=== PATIENT | female | born 1985 | race Caucasian/White ===

== ENCOUNTER → 2020-06-17 15:01 | Outpatient (CLI) | payer MEDICAID, SELFPAY ==
[2020-06-17 16:46] LABS: Absolute Lymphocyte Count 2.18 X10^3/uL (0.83-4.51); Absolute Neutrophil Count 6.6 X10^3/uL (2.0-7.7); Basophil# 0.03 X10^3/uL; Basophil% 0.3 % (0-1); Eosinophil# 0.15 X10^3/uL; Eosinophils% 1.6 % (0-5); Hemoglobin 13.3 g/dL (12.0-15.0); Lymphocyte # 2.18 X10^3/ul (4.0); Lymphocyte % 22.8 % (19-41); Mean Corp Hgb Conc 32.4 g/dL (32-36); Mean Corpuscular Hgb 27.4 pg (27.0-32.0); Mean Corpuscular Volume 84.5 fL (81-99); Mean Platelet Vol. 9.9 fl (6.2-12.0); Monocyte# 0.56 X10^3/uL; Monocyte% 5.8 % (0-10); NRBC Flagged by Analyzer 0 % (0-5); Neutrophil # 6.62 X10^3/uL (2.7-7.7); Neutrophil % 69.1 % (47-70); Platelet Count 342 K/mm3 (150-450); RBC Distribution Width CV 14.6 % (11.6-14.6); RBC Distribution Width SD 44.9 fl (35.1-43.9); Red Blood Count 4.85 M/mm3 (4.2-5.4); White Blood Count 9.6 K/mm3 (4.4-11.0)
[2020-06-17 17:01] LABS: ALB/GLOB Ratio 0.8 RATIO (0.9-2.4); AST(SGOT) 9 U/L (15-37); Alanine Aminotransfer ALT/SGPT 23 U/L (13-56); Albumin, Serum 3.4 g/dL (3.2-5.0); Alkaline Phosphatase 79 U/L (45-117); Anion Gap 9 (5-15); BUN 8 mg/dL (7-18); BUN/Creat Ratio 13.1 RATIO (10-20); Calcium,Total 9.6 mg/dL (8.5-10.1); Chloride 101 mmol/L (98-107); Creatinine, Serum 0.61 mg/dL (0.55-1.02); EST Glomerular Filtration Rate 117 mL/min (>60); Est Glom Filt Rate - Afr Amer 142 mL/min (>60); Globulin 4.3 g/dL (2.2-4.2); Glucose 88 mg/dL (74-106); LDH 107 U/L (84-246); Potassium 3.9 mmol/L (3.5-5.1); Protein, Total 7.7 g/dL (6.4-8.2); Protein, Urine (Random) 12.3 mg/dL (<11.9); Protein:Creat Ratio 113 mg/g CRE (0-200); Sodium Level 134 mmol/L (136-145)
[2020-06-17 17:10] LABS: Amphetamine Urine VISTA NEGATIVE (<1000 ng/mL); Barbiturate Urine VISTA NEGATIVE (< 200 ng/mL); Benzodiazepine Urine VISTA NEGATIVE (< 200 ng/mL); Cocaine Urine VISTA NEGATIVE (< 300 ng/mL); Ecstacy Urine VISTA NEGATIVE (< 500 ng/mL); Methadone Urine VISTA NEGATIVE (< 300 ng/mL); PCP Urine VISTA NEGATIVE (< 25 ng/mL); THC Urine VISTA NEGATIVE (< 50 ng/mL); Vista UDS pH Range 6
[2020-06-18 09:51] LABS: HIV - WCH Non-Reactive (Nonreactive); Hepatitis B Surface Antigen Non-Reactive (Nonreactive); Hepatitis C Antibody Non-Reactive (Nonreactive); Rubella IgG Reactive (Nonreactive)
[2020-06-20 01:10] LABS: Prenatal RPR NONREACTIVE (NONREACTIVE)
[2020-06-20 12:07] LABS: Chlamydia By Nucleic Acid AMP Negative (Negative)
[2020-06-20 13:02] LABS: Gonococcus By Nucleic Acid AMP Negative (Negative)
[2020-06-21 11:23] LABS: HPV APTIMA, High Risk Negative (Negative); HPV Reflexed? NOT INDICATED
== END ==
PROVIDERS: Visit Provider Student in an Organized Health Care Education/Training Program
DX: Z12.4 Encounter for screening for malignant neoplasm of cervix (principal); Z11.3 Encounter for screening for infections with a predominantly sexual mode of transmission; Z32.01 Encounter for pregnancy test, result positive; Z34.81 Encounter for supervision of other normal pregnancy, first trimester
CPT/HCPCS: 36415; 80053; 80307; 82570; 83615; 84156; 85025; 86703; 86762; 86803; 87086; 87088; 87340; 87491; 87591; 88175; G0145

== ENCOUNTER 2020-07-31 17:23 | Emergency (ER) | payer MEDICAID, SELFPAY ==
[2020-07-31 17:24] VITALS: BP 149/83; BP 176/99; PULSE 105; PULSE 125; RESP 18; TEMP 36.6; O2SAT 96; BMI 58.1
[2020-07-31 17:34] VITALS: O2SAT 98
--- NOTE | 2020-07-31 17:35 | EKG12_ITS ---
Test Reason : SOB Blood Pressure : / mmHG Vent. Rate : 106 BPM Atrial Rate : 106 BPM P-R Int : 142 ms QRS Dur : 078 ms QT Int : 310 ms P-R-T Axes : 039 029 021 degrees QTc Int : 411 ms Sinus tachycardia Otherwise normal ECG Confirmed by EMPERATRIZ LANE, MIRNA ([id number]), index editor MARLA ADEN ([id number]) on 08/02/2020 12:45:49 PM Referred By: WARD Confirmed By:MIRNA AWAN MD
--- NOTE | 2020-07-31 17:36 | CT_ITS ---
STUDY: CTA CHEST REASON FOR EXAM: Female, 35 years old. sob -- 18 wks RADIATION DOSAGE (If Supplied By Facility): CTDIvol = ( 14.77 ) mGy, DLP = ( 576.66 ) mGycm TECHNIQUE: The examination was performed with the intravenous administration of IV 100mL Isovue-370. Post-processing of the angiographic images was performed, with multiplanar reformation and 3D reconstruction. Individualized dose optimization techniques were used for this CT. COMPARISON: None. FINDINGS: The pulmonary artery trunk is normal. The bifurcation of the right and left main pulmonary arteries is normal. The distal halves of the main pulmonary arteries are poorly opacified and degraded by motion artifact and not adequately evaluated for the presence of pulmonary emboli. The smaller peripheral branches are poorly opacified with contrast and of nondiagnostic quality to evaluate for the presence of pulmonary emboli. A nuclear medicine lung perfusion scan can be obtained for further assessment if clinically indicated. Normal thoracic aorta and visualized great vessels. There is no demonstrated aortic dissection. Normal heart and pericardium. Normal mediastinum. Normal hilar regions. Normal visualized trachea and bronchi. The lungs are well expanded. Normal pulmonary parenchyma. No visualized consolidation or pulmonary edema or pleural effusion. Normal pleura. Normal chest wall structures. Normal osseous structures. Normal visualized upper abdomen. CT/CTA Chest W/WO Contrast IMPRESSION: 1. The pulmonary artery trunk is normal. The bifurcation of the right and left main pulmonary arteries is normal. The distal halves of the main pulmonary arteries are poorly opacified and degraded by motion artifact and not adequately evaluated for the presence of pulmonary emboli. The smaller peripheral branches are poorly opacified with contrast and of nondiagnostic quality to evaluate for the presence of pulmonary emboli. 2. A nuclear medicine lung perfusion scan can be obtained for further assessment if clinically indicated. No visualized consolidation or pulmonary edema or pleural effusion. 1. Electronically Signed: Leon Manley MD at 20:21 EDT , Service support ,
--- NOTE | 2020-07-31 17:38 | ED.DCSUM_ITS ---
History of Present Illness Chief Complaint: Shortness of Breath Informant: Patient Onset: Weeks Context: Gradual Onset Timing: Intermittent Current Severity: Mild Maximum Severity: Moderate Narrative: Patient reports intermittent shortness of breath since the change of seasons. She is currently 18 weeks and was sent in by her doctors for a CTA of her chest. The call and note from earlier today states that the patient does have a history of hypertension and was recently started on labetalol. They requested a CTA of her chest to further evaluate for possible PE. Patient denies fever or chills. She states she has intermittent shortness of breath that she was thought was secondary to seasonal allergies. She denies palpitations or chest pain. This is her first . Past Medical History - Allergies and Home Meds Allergies/Adverse Reactions: Allergies Penicillins Adverse Reaction (Verified 07/31/20 17:27) Other Primary Care Physician: Constance Cardenas NP, STEAM CONDITIONING OPERATOR-C [Primary Care Provider] - Prior records reviewed: Yes Smoking Status: Current every day smoker Review of Systems General: Denies: Chills, Fever Eyes: Denies: Visual changes - bilaterally ENT: Denies: Bilateral ear pain Cardiovascular: Denies: Chest pain, Palpitations Respiratory: Reports: Dyspnea. Denies: Cough Gastrointestinal: Denies: Abdominal pain, Vomiting, Diarrhea Genitourinary: Denies: Dysuria Musculoskeletal: Denies: Swelling, Extremity Pain Hematologic: Denies: Easy bruising, Easy bleeding Allergy: Denies: Uticaria Physical Exam Vital Signs/Narrative: Vital Signs Temp Pulse Resp BP Pulse Ox 07/31/20 17:24 97.9 F 105 H 18 149/83 H 96 Inital Vital Signs reviewed: Yes General: Well nourished, Well developed Head: Normocephalic ENT: Moist mucous membranes Neck: Supple Cardiovascular: Tachycardia Respiratory: No distress, CTA bilaterally Abdomen: Soft, Nontender, - - Gravid Skin: Normal color Neurological: Alert, Oriented x3 Psychological: Normal affect Diagnostic/Tx/Re-eval Impressions Chest CTA 07/31/20 17:36 IMPRESSION: 1. The pulmonary artery trunk is normal. The bifurcation of the right and left main pulmonary arteries is normal. The distal halves of the main pulmonary arteries are poorly opacified and degraded by motion artifact and not adequately evaluated for the presence of pulmonary emboli. The smaller peripheral branches are poorly opacified with contrast and of nondiagnostic quality to evaluate for the presence of pulmonary emboli. 2. A nuclear medicine lung perfusion scan can be obtained for further assessment if clinically indicated. No visualized consolidation or pulmonary edema or pleural effusion. 1. Electronically Signed: Leon Manley MD at 20:21 EDT , Service support , 07/31/20 17:36 CTA Chest W/WO Contrast [CT] Stat Laboratory Results 07/31/20 07/31/20 17:50 17:50 WBC 10.7 RBC 4.55 Hgb 12.7 Hct 38.5 MCV 84.6 MCH 27.9 MCHC 33.0 RDW Std Deviation 44.3 H RDW Coeff of Sanya 14.4 Plt Count 337 MPV 9.4 Immature Gran % (Auto) 0.600 Neut % (Auto) 70.4 H Lymph % (Auto) 20.8 [place] % (Auto) 6.0 Eos % (Auto) 1.9 Baso % (Auto) 0.3 Absolute Neuts (auto) 7.5 Absolute Lymphs (auto) 2.22 Nucleated RBC % 0 Sodium 136 Potassium 4.2 Chloride 101 Carbon Dioxide 26.0 Anion Gap 9 BUN 7 Creatinine 0.63 Estim Creat Clear Calc 101.14 Est GFR (MDRD) Af Amer 137 Est GFR (MDRD) Non-Af 113 BUN/Creatinine Ratio 11.1 Glucose 94 Calcium 9.5 Total Bilirubin 0.20 AST 6 L ALT 15 Alkaline Phosphatase 70 Total Protein 7.5 Albumin 2.9 L Globulin 4.6 H Albumin/Globulin Ratio 0.6 L - EKG Initial EKG Interpretation: Sinus Tachycardia - Sinus tach at [address] change. - Medical Decision Making Bedside ultrasound was performed. activity and heartbeat are noted. Blood work is obtained and unremarkable. Patient's blood pressure was initially 176/99. During her ED stay this has improved and the most recent blood pressures of been in the 120s over 60s to 70s. CTA of the chest is obtained. The central vessels appear to have no evidence of PE but because of contrast bolus timing they are unable to fully evaluate the more peripheral vessels. They did recommend a nuclear medicine test. I spoke with Dr. Sinclair. The patient obviously cannot have a nuclear medicine test that she is currently . My clinical suspicion at this point for a PE is low and the patient herself tells me she does not believe she has a blood clot. At this time she will continue to monitor her symptoms at home. If she develops chest pain or increased shortness of breath she will return to the emergency room. She will call her doctor's office this week with an update on her symptoms. ED Disposition - Plan for ED Patient: Disposition: Home or Assisted Living Diagnosis: Dyspnea, Second trimester Instructions: ED Dyspnea Referrals: Constance Cardenas NP, STEAM CONDITIONING OPERATOR-C [Primary Care Provider] - Leonora Ellison DO [STAFF PHYSICIAN] -
--- NOTE | 2020-07-31 17:40 | NURSING ---
NO OLD EKGS
[2020-07-31 18:01] LABS: Absolute Lymphocyte Count 2.22 X10^3/uL (0.83-4.51); Absolute Neutrophil Count 7.5 X10^3/uL (2.0-7.7); Basophil# 0.03 X10^3/uL; Basophil% 0.3 % (0-1); Eosinophils% 1.9 % (0-5); Hematocrit 38.5 % (37-47); Hemoglobin 12.7 g/dL (12.0-15.0); Lymphocyte # 2.22 X10^3/ul (4.0); Lymphocyte % 20.8 % (19-41); Mean Corpuscular Hgb 27.9 pg (27.0-32.0); Mean Corpuscular Volume 84.6 fL (81-99); Mean Platelet Vol. 9.4 fl (6.2-12.0); Monocyte# 0.64 X10^3/uL; NRBC Flagged by Analyzer 0 % (0-5); Neutrophil # 7.54 X10^3/uL (2.7-7.7); Neutrophil % 70.4 % (47-70); Platelet Count 337 K/mm3 (150-450); RBC Distribution Width CV 14.4 % (11.6-14.6); RBC Distribution Width SD 44.3 fl (35.1-43.9); Red Blood Count 4.55 M/mm3 (4.2-5.4); White Blood Count 10.7 K/mm3 (4.4-11.0)
[2020-07-31 18:18] LABS: ALB/GLOB Ratio 0.6 RATIO (0.9-2.4); AST(SGOT) 6 U/L (15-37); Alanine Aminotransfer ALT/SGPT 15 U/L (13-56); Albumin, Serum 2.9 g/dL (3.2-5.0); Alkaline Phosphatase 70 U/L (45-117); Anion Gap 9 (5-15); BUN 7 mg/dL (7-18); BUN/Creat Ratio 11.1 RATIO (10-20); Calcium,Total 9.5 mg/dL (8.5-10.1); Chloride 101 mmol/L (98-107); Creatinine, Serum 0.63 mg/dL (0.55-1.02); EST Glomerular Filtration Rate 113 mL/min (>60); Est Glom Filt Rate - Afr Amer 137 mL/min (>60); Estimated Creatinine Clearance 101.14 ml/min; Globulin 4.6 g/dL (2.2-4.2); Glucose 94 mg/dL (74-106); Potassium 4.2 mmol/L (3.5-5.1); Protein, Total 7.5 g/dL (6.4-8.2); Sodium Level 136 mmol/L (136-145)
[2020-07-31 20:22] VITALS: BP 126/82; PULSE 108; RESP 19; O2SAT 97
[2020-07-31 20:55] VITALS: BP 128/70; PULSE 98; RESP 16; O2SAT 96
== END 2020-07-31 20:55 | disposition home or self-care (01) ==
PROVIDERS: Emergency Provider Emergency Medicine; PCP Nurse Practitioner Family
DX: O26.892 Other specified pregnancy related conditions, second trimester (principal); R06.00 Dyspnea, unspecified; Z3A.18 18 weeks gestation of pregnancy; O10.912 Unspecified pre-existing hypertension complicating pregnancy, second trimester; Z88.0 Allergy status to penicillin; O99.332 Smoking (tobacco) complicating pregnancy, second trimester; F17.200 Nicotine dependence, unspecified, uncomplicated
CPT/HCPCS: 71275; 80053; 85025; 93005; 99284; J7030; Q9967

== ENCOUNTER → 2020-10-17 10:51 | Outpatient (CLI) | payer MEDICAID, SELFPAY ==
[2020-10-17 12:00] LABS: Hematocrit 34.3 % (37-47); Hemoglobin 11.2 g/dL (12.0-15.0); Mean Corp Hgb Conc 32.7 g/dL (32-36); Mean Corpuscular Hgb 28.4 pg (27.0-32.0); Mean Corpuscular Volume 86.8 fL (81-99); Mean Platelet Vol. 10.1 fl (6.2-12.0); Platelet Count 285 K/mm3 (150-450); RBC Distribution Width CV 14.5 % (11.6-14.6); RBC Distribution Width SD 45.8 fl (35.1-43.9); Red Blood Count 3.95 M/mm3 (4.2-5.4); White Blood Count 9.5 K/mm3 (4.4-11.0)
[2020-10-17 12:22] LABS: ALB/GLOB Ratio 0.5 RATIO (0.9-2.4); AST(SGOT) 11 U/L (15-37); Alanine Aminotransfer ALT/SGPT 15 U/L (13-56); Albumin, Serum 2.3 g/dL (3.2-5.0); Alkaline Phosphatase 81 U/L (45-117); Anion Gap 6 (5-15); BUN 9 mg/dL (7-18); BUN/Creat Ratio 14.4 RATIO (10-20); Calcium,Total 8.4 mg/dL (8.5-10.1); Chloride 106 mmol/L (98-107); Creatinine, Serum 0.62 mg/dL (0.55-1.02); EST Glomerular Filtration Rate 114 mL/min (>60); Est Glom Filt Rate - Afr Amer 138 mL/min (>60); Globulin 4.2 g/dL (2.2-4.2); Glucose 203 mg/dL (74-106); Glucose Challenge Gest 1H 50g 203 mg/dL (70-140); Protein, Total 6.5 g/dL (6.4-8.2); Sodium Level 136 mmol/L (136-145)
== END ==
PROVIDERS: PCP Nurse Practitioner Family; Visit Provider Student in an Organized Health Care Education/Training Program
DX: Z34.82 Encounter for supervision of other normal pregnancy, second trimester (principal)
CPT/HCPCS: 36415; 80053; 82950; 85027

== ENCOUNTER → 2020-11-11 12:37 | Outpatient (CLI) | payer MEDICAID, SELFPAY ==
--- NOTE | 2020-11-11 12:39 | ECHOD_ITS ---
Reason For Study: Hx HTN Procedure This was a 2D Doppler, Color Flow transthoracic echocardiogram. Unable to utilize Definity due to patient being . Exam performed in department. Left Ventricle Normal LV size. Left ventricular systolic function is normal. The estimated ejection fraction is 55 %. No regional wall motion abnormalities noted. Right Ventricle Normal RV size. Normal systolic function. Atria The left atrium is mildly enlarged. Normal right atrium. Mitral Valve Normal mitral valve. Tricuspid Valve Normal tricuspid valve. Mild tricuspid valve insufficiency. Aortic Valve Normal aortic valve. Trisinus/trileaflet aortic valve. Pulmonic Valve Normal pulmonic valve. Great Vessels Normal aortic root. Pericardium/Pleural No pericardial effusion. MMode/2D Measurements & Calculations LVIDd: 4.6 cm IVSd: 0.94 cm Ao root diam: 2.9 cm LVIDs: 3.0 cm LVPWd: 1.1 cm LA dimension: 4.3 cm FS: 34.3 % LAV(MOD-bp): 63.3 ml LA A4 area: 22.5 cm2 RA A4 area: 15.1 cm2 LAV(MOD-bp) Indexed: 26.1 ml/m2 LAV(MOD-sp2): 45.8 ml LAV(MOD-sp4): 70.2 ml Time Measurements MV dec time: 0.19 sec Doppler Measurements & Calculations MV E max myron: 121.6 cm/sec Lat Peak E' Myron: 9.2 cm/sec Med Peak E' Myron: 10.9 cm/sec MV A max mryon: 88.8 cm/sec E/E' lat: 13.2 E/E' med: 11.2 MV E/A: 1.4 MV V2 max: 124.0 cm/sec MV P1/2t max myron: 124.0 cm/sec Ao V2 max: 186.6 cm/sec MV max P.2 mmHg MV P1/2t: 61.6 msec Ao max P.9 mmHg MV V2 mean: 68.8 cm/sec MV dec slope: 590.1 cm/sec2 MV mean P.3 mmHg MVA(P1/2t): 3.6 cm2 MV V2 VTI: 23.6 cm LV V1 max: 164.0 cm/sec PA V2 max: 129.0 cm/sec TR max myron: 229.9 cm/sec LV V1 max P.8 mmHg TR max P.1 mmHg ECHO/Echo Complete Interpretation Summary Normal LV size. Left ventricular systolic function is normal. The estimated ejection fraction is 55 %. Mild tricuspid valve insufficiency. Ordering Physician: Sumi Rainey Referring Physician: Constance Cardenas Performed By: Thor Arevalo RCS
== END ==
PROVIDERS: PCP Nurse Practitioner Family; Referring Provider Obstetrics & Gynecology; Visit Provider Obstetrics & Gynecology
DX: O24.414 Gestational diabetes mellitus in pregnancy, insulin controlled (principal); O99.213 Obesity complicating pregnancy, third trimester; I27.0 Primary pulmonary hypertension
CPT/HCPCS: 93306

== ENCOUNTER → 2020-12-09 14:02 | Outpatient (CLI) | payer MEDICAID, SELFPAY | PROVIDERS: PCP Nurse Practitioner Family; Visit Provider Obstetrics & Gynecology | DX: Z36.85 Encounter for antenatal screening for Streptococcus B (principal); Z34.83 Encounter for supervision of other normal pregnancy, third trimester | CPT/HCPCS: 87081 ==

== ENCOUNTER → 2020-12-10 13:16 | Outpatient (CLI) | payer MEDICAID, SELFPAY | PROVIDERS: PCP Nurse Practitioner Family; Visit Provider Obstetrics & Gynecology | DX: Z03.818 Encounter for observation for suspected exposure to other biological agents ruled out (principal) | CPT/HCPCS: 87426 ==

== ENCOUNTER 2020-12-12 05:04 | Inpatient (IN) | payer MEDICAID, SELFPAY ==
[2020-12-12] VITALS (17 sets, daily range): BP systolic 123–160; BP diastolic 67–102; PULSE 79–109; RESP 14–18; TEMP 36.1–37.1; O2SAT 95–98; BMI 61.3
[2020-12-12] MEDS: Lactated Ringers 1,000 ML 999 ML IV (05:25)
[2020-12-12 06:10] LABS: Absolute Lymphocyte Count 1.98 X10^3/uL (0.83-4.51); Absolute Neutrophil Count 8.7 X10^3/uL (2.0-7.7); Basophil# 0.02 X10^3/uL; Basophil% 0.2 % (0-1); Eosinophil# 0.15 X10^3/uL; Eosinophils% 1.3 % (0-5); Hematocrit 36.7 % (37-47); Hemoglobin 11.8 g/dL (12.0-15.0); Lymphocyte # 1.98 X10^3/ul (0.83-4.51); Mean Corp Hgb Conc 32.2 g/dL (32-36); Mean Corpuscular Hgb 27.4 pg (27.0-32.0); Mean Corpuscular Volume 85.2 fL (81-99); Mean Platelet Vol. 11.6 fl (6.2-12.0); Monocyte# 0.74 X10^3/uL; Monocyte% 6.4 % (0-10); NRBC Flagged by Analyzer 0 % (0-5); Neutrophil # 8.68 X10^3/uL (2.7-7.7); Neutrophil % 74.7 % (47-70); Platelet Count 228 K/mm3 (150-450); RBC Distribution Width CV 14.4 % (11.6-14.6); RBC Distribution Width SD 44.8 fl (35.1-43.9); Red Blood Count 4.31 M/mm3 (4.2-5.4); White Blood Count 11.6 K/mm3 (4.4-11.0)
[2020-12-12] MEDS: Lactated Ringers 1,000 ML 150 ML IV (06:31)
[2020-12-12] MEDS: Sodium Citrate/Citric Acid 30 ML UDC PO (06:46)
[2020-12-12] MEDS: Acetaminophen 500 MG Tablet 1000 MG PO ×3 (06:46→19:07)
--- NOTE | 2020-12-12 06:54 | PCM.HP.BLA ---
History and Physical Date of Admission: 12/12/20 Chief complaint: Primary section for transverse lie History of present illness: 35-year-old G1, P0 at 37 weeks and 2 days with CHANDA: 12/31/2020 by 11wk u/s arrives for primary section for transverse lie. Denies headache, visual changes, chest pain, shortness of breath, nausea vomiting, right upper quadrant pain. Patient states good movement. is complicated by AMA, chronic hypertension on labetalol and milligrams twice daily, GDM A2 on metformin at 1000 mg twice daily, depression on sertraline and BuSpar, class III obesity Obstetric history: G1: Current Past medical history: Chronic hypertension, depression, GDM A2 Medications: Labetalol 100 mg twice daily, Metformin 1000 g twice daily, sertraline, BuSpar Past surgical history: Cholecystectomy Social history: Half pack per day smoker, denies alcohol or drug use Allergies: Penicillin Family history: Denies history DVT or PE Review of systems: Besides above pertinent positives a full review of systems was performed and found to be negative Physical exam: Vital signs: Blood pressure 125/99 pulse 108 respiratory rate 18 temp 97.6 SPO2 96% on room air General: Normal-appearing no acute distress HEENT: Normocephalic atraumatic no cervical of adenopathy Cardiac/respiratory: No use of accessory muscles, nonlabored breathing Abdomen: Soft, nontender, gravid, obese Extremities: No peripheral edema normal peripheral pulses Psych: Normal affect normal demeanor nonpressured speech Bedside ultrasound: Head maternal right, oblique lie Assessment plan: 35-year-old G1, P0 at 37 weeks and 2 days arrives for primary section with transverse lie now oblique lie. Admit labor and delivery CEFM GBS negative Gent and Clinda preoperatively Chronic hypertension: Patient initially with severe range blood pressure repeat blood pressure nonsevere range. Patient asymptomatic. We will continue to monitor. For HELLP labs now. GDM A2: We will continue to monitor Depression: Continue at home meds Routine orders Anesthesia to see
[2020-12-12 06:56] LABS: Bedside Glucose 115 mg/dL (70-110)
[2020-12-12 07:45] LABS: AST(SGOT) 14 U/L (15-37); Alanine Aminotransfer ALT/SGPT 20 U/L (13-56); Creatinine, Serum 0.48 mg/dL (0.55-1.02); EST Glomerular Filtration Rate 154 mL/min (>60); Est Glom Filt Rate - Afr Amer 186 mL/min (>60); Estimated Creatinine Clearance 132.74 ml/min; Uric Acid 6.1 mg/dL (2.6-6.0)
--- NOTE | 2020-12-12 09:06 | EX.PCM.OBRPT ---
Details Operative Information Date of Procedure: 12/12/20 Pre-Operative Diagnosis: Term, transverse lie ,poorly controlled diabetes, chronic hypertension Post-Operative Diagnosis: Term, transverse lie, poorly controlled diabetes, chronic hypertension can top setter #1: Sumi Rainey Type of Anesthesia: Spinal Findings Description of Procedure: Procedure: Primary section Via vertical midline incision, low transverse hysterotomy Surgeon: Romel Ellison MD EBL: 600 cc Urine output: 100 cc IV fluids: 1000 cc Complications: None Specimen: None Findings: Male in transverse head maternal right position, Apgars pending see veneer trimmer's note. Normal uterus, tubes, and ovaries. Consent: Patient at term with poorly controlled diabetes and poor adhesion to medication regiment along with chronic hypertension along with class III obesity in need of primary section Via vertical midline incision for transverse lie and secondary to large pannus. Patient understands the risk of the procedure include but are not limited to visceral or vascular injury, prolonged hospitalization, blood loss need for transfusion, reoperation. Patient did understand and wished proceed. All questions answered consent was signed. Procedure: Patient was brought back to the OR where spinal anesthesia found be adequate. Gent and clindamycin were given for infection prophylaxis. Patient was prepared and draped in a supine position with leftward tilt. Supraumbilical vertical midline incision made at the skin with a scalpel. The incision was carried down to the fascia with scalpel. The fascia was excised at the midline dissecting the rectus muscle at the midline. Peritoneum was identified and entered sharply. Peritoneum was extended superiorly and inferiorly. Denny retractor was placed. Good visualization was noted. Transverse head maternal right was reconfirmed on palpation. Low transverse hysterotomy incision was made. Hand was placed into the incision, head was grasped and brought into the hysterotomy. With the use of a Kiwi vacuum delivery of the head was performed. Shoulders delivered with ease. Cord cut and clamped. Baby handed off to nursing. Placenta delivered via cord traction and fundal massage. IV oxytocin initiated in order to facilitate uterine contractions. Uterus was brought out of the abdominal cavity and wiped out with dry laparotomy sponge in order to remove remaining placental membranes. Hysterotomy was closed in a continuous running locked fashion. Second layer was performed. Good hemostasis was noted. Uterus was placed back in the abdominal cavity and reinspected, good hemostasis was noted. Denny retractor was removed. Fascial incision was closed in a mass closure continuous running fashion with double-stranded PDS. Subcu was closed. Dermis was reapproximated. Skin was closed with cathy. Good hemostasis noted.
[2020-12-12] MEDS: Oxytocin 30 units/NS 500 ml 30 UNITS/500 ML IV.SOLN 167 UNITS IV (09:15)
[2020-12-12 09:46] LABS: Protein, Urine (Random) 239.5 mg/dL (<11.9); Protein:Creat Ratio 1361 mg/g CRE (0-200)
[2020-12-12] MEDS: Ketorolac 30 MG/ML Syringe IV ×3 (09:57→21:18)
[2020-12-12 10:06] LABS: Bedside Glucose 104 mg/dL (70-110)
[2020-12-12] MEDS: HYDROmorphone 1 MG/ML Syringe IV ×2 (10:36→18:22)
[2020-12-12] MEDS: Lactated Ringers 1,000 ML 100 ML IV (13:21)
[2020-12-12] MEDS: Enoxaparin 40 MG/0.4 ML Syringe SC (20:31)
[2020-12-12] MEDS: Sertraline 100 MG Tablet PO (21:18)
[2020-12-12] MEDS: busPIRone 5 MG Tablet 7.5 MG PO (21:18)
[2020-12-12] MEDS: NIFEdipine 30 MG Tablet PO (21:18)
[2020-12-13] MEDS: Acetaminophen 500 MG Tablet 1000 MG PO ×3 (01:18→12:49)
[2020-12-13 03:46] VITALS: BP 146/85; PULSE 83; RESP 18; TEMP 36.5; O2SAT 98
--- NOTE | 2020-12-13 03:46 | NURSING ---
Difficult to assess fundal height d/t pt pannus.
[2020-12-13] MEDS: Ketorolac 30 MG/ML Syringe IV (03:50)
[2020-12-13] MEDS: 0.9% Saline Lock 10 ML Syringe IV ×2 (03:51→08:18)
[2020-12-13 07:42] LABS: Hematocrit 33.6 % (37-47); Hemoglobin 10.8 g/dL (12.0-15.0); Mean Corp Hgb Conc 32.1 g/dL (32-36); Mean Corpuscular Hgb 27.3 pg (27.0-32.0); Mean Corpuscular Volume 84.8 fL (81-99); Mean Platelet Vol. 11.1 fl (6.2-12.0); Platelet Count 203 K/mm3 (150-450); RBC Distribution Width CV 14.6 % (11.6-14.6); RBC Distribution Width SD 44.6 fl (35.1-43.9); Red Blood Count 3.96 M/mm3 (4.2-5.4); White Blood Count 9.4 K/mm3 (4.4-11.0)
--- NOTE | 2020-12-13 07:52 | DCINST_ITS ---
Discharge Instructions Diet Discharge Diet: No restrictions Activity Discharge Activity: Return to Normal Activity, May Drive, May Shower and - (May not drive on narcotics. No tub baths for 2 weeks) May resume sexual activity in: 4-6 weeks Lifting Restrictions: No lifting over 25 pounds for 3 weeks Dressing / Incision Call your doctor if your incision/area has: Continuous Slow Oozing and Foul Smelling Discharge Call your doctor if you observe: Fever of 101 or Higher, Shortness of breath and Chest pain Follow Up Care Please Follow Up With: Romel Ellison MD When: Follow-up 1 week for staple removal and blood pressure check, follow-up 2 weeks postoperative, follow-up 4 to 6 weeks Test Results: Test results from this visit will be discussed in further detail at your follow-up appointment, if applicable. Discharge Plan Admission Admit Date/Time: 12/12/20 05:04 Primary Reason for Your Visit: Primary section Attending Provider: Romel Ellison Primary Care Provider: Constance Cardenas NP Discharge Orders/Prescriptions Prescriptions: New enoxaparin 40 mg/0.4 mL Syringe 40 mg subcut DAILY 42 Days Qty: 16.8 RF: 0 nifedipine 30 mg Tablet Extended Release 24hr 30 mg PO DAILY 30 Days Qty: 30 RF: 2 oxycodone 5 mg Tablet 5 mg PO Q6H PRN PRN (Reason: Pain Score 6-10) 4 Days Qty: 16 RF: 0 Continued buspirone 5 MG tablet 7.5 mg PO DAILY PRN PRN (Reason: depression) RF: 0 sertraline 100 MG tablet 100 mg PO DAILY RF: 0 pantoprazole 40 MG tablet 40 mg PO DAILY RF: 0 vit,[id number] 1 TABLET tablet 1 tablet PO DAILY RF: 0 metformin 750 mg Tablet Extended Release 24 Hr 750 mg PO DAILY RF: 0 Referrals / Follow Up: Constance Cardenas NP, INVESTOR RELATIONS SPECIALIST-C [Primary Care Provider] - Disposition Disposition (needs filled in before D/C Order can be placed): Home, Self Care
--- NOTE | 2020-12-13 07:54 | PCM.PN.OB ---
Subjective Subjective No overnight complaints. Pain well controlled. Objective Data Objective Data Vital Signs: Vital Signs Temp Pulse Resp BP Pulse Ox 97.7 F L 83 18 146/85 H 98 12/13/20 03:46 12/13/20 03:46 12/13/20 03:46 12/13/20 03:46 12/13/20 03:46 Oxygen Delivery Method Room Air Weight: 346 lb 3.2 oz Body Mass Index (BMI) 61.3 Intake & Output: Intake and Output for Last 24 Hours 12/11/20 12/12/20 12/13/20 23:59 23:59 23:59 Intake Total 2238.5 / 2238.5 876 / 876 Output Total 600 / 600 250 / 250 Balance 1638.5 / 1638.5 626 / 626 Lab / Micro Data Result Diagrams: 12/13/20 07:22 12/12/20 07:20 Labs: Laboratory Results - last 24 hr 12/12/20 09:15: U Random Total Protein 239.5 H, Urine Creatinine 176.00, Protein/Creatinin Ratio 1361 H 12/12/20 10:00: POC Glucose 104 12/13/20 07:22: WBC 9.4, RBC 3.96 L, Hgb 10.8 L, Hct 33.6 L, MCV 84.8, MCH 27.3, MCHC 32.1, RDW Std Deviation 44.6 H, RDW Coeff of Sanya 14.6, Plt Count 203, MPV 11.1 Physical Exam Const alert, oriented x3, no apparent distress, average body habitus and well nourished HEENT normocephalic and moist oral mucous membranes Face and Sinus: normal facial exam Neck full ROM Resp normal respiratory effort, no retractions and no use of accessory muscles GI normal to inspection, nondistended, normoactive bowel sounds GI Narrative: Bandage removed, supraumbilical vertical midline incision incision clean dry and intact closed with cathy Extremity normal to inspection, full ROM and no clubbing, cyanosis or edema Skin no rashes or lesions noted Psych mental status grossly normal, affect normal, speech normal and activity/motor behavior normal Assessment & Plan (1) delivery delivered: PLAN: Postoperative day 1 status post primary section for transverse lie. Pain well controlled. Chronic hypertension started on Procardia 30 mg XL daily last evening, will continue home-going. GDM A2 on metformin, will continue. Patient desires discharge home to be with baby up at [facility], [facility], [place]. We will follow-up in office in 1 week for staple removal
[2020-12-13 07:58] VITALS: BP 128/79; PULSE 90; RESP 16; TEMP 36.2; O2SAT 96
[2020-12-13 08:11] LABS: Bedside Glucose 102 mg/dL (70-110)
[2020-12-13] MEDS: oxyCODONE 5 MG Tablet PO ×2 (08:17→12:25)
[2020-12-13] MEDS: Ibuprofen 600 MG Tablet PO (10:08)
[2020-12-13] MEDS: Senna/Docusate Sodium 1 Tablet PO (10:09)
[2020-12-13] MEDS: NIFEdipine 30 MG Tablet PO (10:09)
[2020-12-13 12:15] VITALS: BP 155/88; PULSE 89; RESP 16; TEMP 36.4
== END 2020-12-13 13:15 | disposition home or self-care (01) | DRG 540 ==
PROVIDERS: Obstetrics & Gynecology; Admitting Provider Obstetrics & Gynecology; PCP Nurse Practitioner Family; Referring Provider Obstetrics & Gynecology; Visit Provider Obstetrics & Gynecology
PROC: 10D00Z1 Extraction of Products of Conception, Low, Open Approach (ICD-10-PCS; CPT 59514; principal; 2020-12-12 07:15)
DX: O32.2XX0 Maternal care for transverse and oblique lie, not applicable or unspecified (principal); O10.92 Unspecified pre-existing hypertension complicating childbirth; O24.425 Gestational diabetes mellitus in childbirth, controlled by oral hypoglycemic drugs; O99.214 Obesity complicating childbirth; E66.01 Morbid (severe) obesity due to excess calories; O99.334 Smoking (tobacco) complicating childbirth; F17.210 Nicotine dependence, cigarettes, uncomplicated; Z37.0 Single live birth; Z3A.37 37 weeks gestation of pregnancy; Z79.899 Other long term (current) drug therapy; F32.9 Major depressive disorder, single episode, unspecified; O99.344 Other mental disorders complicating childbirth; Z90.49 Acquired absence of other specified parts of digestive tract
CPT/HCPCS: 36415; 82565; 82570; 82962; 84156; 84450; 84460; 84550; 85025; 85027; 86850; 86900; 86901; 87081; 87426; 99218; 99251; C9803; J7120; A4216; G0378; G0463; J2405

== ENCOUNTER → 2020-12-24 14:58 | Outpatient (CLI) | payer MEDICAID, SELFPAY ==
[2020-12-24 15:38] LABS: Hematocrit 36.8 % (37-47); Hemoglobin 11.6 g/dL (12.0-15.0); Mean Corp Hgb Conc 31.5 g/dL (32-36); Mean Corpuscular Hgb 26.7 pg (27.0-32.0); Mean Corpuscular Volume 84.8 fL (81-99); Mean Platelet Vol. 9.9 fl (6.2-12.0); Platelet Count 401 K/mm3 (150-450); RBC Distribution Width CV 13.9 % (11.6-14.6); RBC Distribution Width SD 43.4 fl (35.1-43.9); Red Blood Count 4.34 M/mm3 (4.2-5.4); White Blood Count 7.9 K/mm3 (4.4-11.0)
[2020-12-24 15:55] LABS: ALB/GLOB Ratio 0.7 RATIO (0.9-2.4); AST(SGOT) 14 U/L (15-37); Alanine Aminotransfer ALT/SGPT 29 U/L (13-56); Alkaline Phosphatase 95 U/L (45-117); Anion Gap 5 (5-15); BUN 12 mg/dL (7-18); BUN/Creat Ratio 16.6 RATIO (10-20); Calcium,Total 8.7 mg/dL (8.5-10.1); Chloride 106 mmol/L (98-107); Creatinine, Serum 0.72 mg/dL (0.55-1.02); EST Glomerular Filtration Rate 96 mL/min (>60); Est Glom Filt Rate - Afr Amer 116 mL/min (>60); Globulin 4.1 g/dL (2.2-4.2); Glucose 86 mg/dL (74-106); LDH 159 U/L (84-246); Potassium 3.9 mmol/L (3.5-5.1); Protein, Total 7.1 g/dL (6.4-8.2); Sodium Level 140 mmol/L (136-145)
== END ==
PROVIDERS: PCP Nurse Practitioner Family; Visit Provider Obstetrics & Gynecology
DX: I10 Essential (primary) hypertension (principal)
CPT/HCPCS: 36415; 80053; 83615; 85027